=== PATIENT | female | born 1960 | race Two or more races ===

== ENCOUNTER 2018-01-28 10:42 | Outpatient (CLI) | payer OTHER ==
[~2018-01-28 10:42] MED LIST: COZAAR25 MG; SYNTHROID100 MCG
== END 2018-01-28 10:57 | disposition home or self-care (01) ==
LOC: LAB 10:42
DX: E11.9 Type 2 diabetes mellitus without complications (principal); E03.8 Other specified hypothyroidism; I10 Essential (primary) hypertension; K76.0 Fatty (change of) liver, not elsewhere classified; E55.9 Vitamin D deficiency, unspecified; N39.0 Urinary tract infection, site not specified; E78.4 Other hyperlipidemia; E78.00 Pure hypercholesterolemia, unspecified; Z12.11 Encounter for screening for malignant neoplasm of colon

== ENCOUNTER 2018-06-26 10:16 | Outpatient (CLI) | payer OTHER | END 2018-06-26 10:32 | disposition home or self-care (01) | LOC: LAB 10:16 | DX: I10 Essential (primary) hypertension (principal); E11.9 Type 2 diabetes mellitus without complications; N39.0 Urinary tract infection, site not specified; M06.4 Inflammatory polyarthropathy; E55.9 Vitamin D deficiency, unspecified; Z12.11 Encounter for screening for malignant neoplasm of colon; E03.8 Other specified hypothyroidism; E78.49 Other hyperlipidemia; K76.89 Other specified diseases of liver ==

== ENCOUNTER 2019-08-22 16:03 | Emergency (ER) | payer OTHER ==
[~2019-08-22] VITALS: Ht 165.1 cm; Wt 89.8 kg
== END 2019-08-22 18:32 | disposition home or self-care (01) ==
LOC: ER 16:03
DX: S13.4XXA Sprain of ligaments of cervical spine, initial encounter (principal); V49.9XXA Car occupant (driver) (passenger) injured in unspecified traffic accident, initial encounter; Y93.89 Activity, other specified; Y92.488 Other paved roadways as the place of occurrence of the external cause; Y99.8 Other external cause status

== ENCOUNTER 2020-06-15 09:13 | Outpatient (CLI) | payer OTHER | END 2020-06-15 09:23 | disposition home or self-care (01) | LOC: NUCLEAR 09:13 | PROVIDERS: ATTEND Internal Medicine | DX: I10 Essential (primary) hypertension (principal); I49.8 Other specified cardiac arrhythmias ==

== ENCOUNTER 2021-12-08 11:44 | Emergency (ER) | payer OTHER ==
[~2021-12-08] VITALS: Ht 165.1 cm; Wt 90.7 kg
[2021-12-08] MEDS ORDERED: METOPROLOL SUCC50 MG PO (12:21)
[2021-12-08] MEDS ORDERED: ATORVASTATIN CA20 MG PO (12:22)
[2021-12-08] MEDS ORDERED: VITAMIN D21250 MCG PO (12:22)
[2021-12-08] MEDS ORDERED: DIGOXIN125 MCG PO (12:22)
== END 2021-12-08 15:13 | disposition home or self-care (01) ==
LOC: ER 11:44
DX: G51.0 Bell's palsy (principal); I10 Essential (primary) hypertension; Z91.041 Radiographic dye allergy status

== ENCOUNTER 2023-04-21 11:55 | Outpatient (CLI) | payer OTHER ==
[~2023-04-21 11:55] MED LIST changes: +ATORVASTATIN CA20 MG PO; +DIGOXIN125 MCG PO; +METOPROLOL SUCC50 MG PO; +VITAMIN D21250 MCG PO
== END 2023-04-21 12:10 | disposition home or self-care (01) ==
LOC: RAD 11:55
PROVIDERS: ATTEND Internal Medicine
DX: M06.4 Inflammatory polyarthropathy (principal); M81.0 Age-related osteoporosis without current pathological fracture

== ENCOUNTER 2024-05-26 13:15 | Outpatient (CLI) | payer OTHER | END 2024-05-26 13:17 | disposition home or self-care (01) | LOC: SONOGRAMA 13:15 | PROVIDERS: ATTEND Physical Medicine & Rehabilitation | DX: M75.102 Unspecified rotator cuff tear or rupture of left shoulder, not specified as traumatic (principal) ==

== ENCOUNTER 2025-01-14 10:41 | Outpatient (CLI) | payer OTHER | END 2025-01-14 10:51 | disposition home or self-care (01) | LOC: MAMO-SONO 10:41 | PROVIDERS: ATTEND Internal Medicine | DX: N60.11 Diffuse cystic mastopathy of right breast (principal); N60.12 Diffuse cystic mastopathy of left breast ==